=== PATIENT | female | born 1990 | race Hispanic/Latino ===

== ENCOUNTER 2019-11-24 20:22 | Emergency (ER) | payer SELFPAY ==
[2019-11-24 21:13] LABS: Urine Blood 1+ (NEG); Urine Glucose NEGATIVE (NEG); Urine Protein 1+ (NEG); Urine pH 6.5 (5.0-7.0)
[2019-11-24 21:17] LABS: Urine Bacteria >50 /HPF (<20); Urine Culture Reflex Order REFLEXED; Urine RBC 20-50 /HPF (NONE SEEN)
[2019-11-24 21:31] LABS: Absolute Lymphocytes (CBC) 1.4 K/uL (0.7-4.9); Basophils % 0.4 % (0-1.3); Lymphocytes % 16.2 % (15.3-44.8); MPV 8.6 fL (7.6-11.3); RBC Red Blood Cell Count 3.51 M/uL (3.86-4.86)
[2019-11-24 22:06] LABS: BUN Blood Urea Nitrogen 5 mg/dL (7-18); Bicarbonate 22 mmol/L (21-32); Glucose Level 92 mg/dL (74-106); HCG, Quantitative 55697 mIU/mL (1-3); Potassium 3.5 mmol/L (3.5-5.1); Sodium Level 140 mmol/L (136-145)
--- NOTE | 2019-11-24 22:28 | EDPHYS ---
Physician Documentation [facility] Name: Kierra Scott Age: 29 yrs Sex: Female : 1990 Arrival Date: 11/24/2019 Time: 20:24 Bed 18 Private MD: ED Physician Scooby Cade HPI: 11/24 20:56 This 29 yrs old Female presents to ER via Ambulatory with complaints of 15WKS kb , Abdominal Pain, Shortness Of Breath, Fever. 20:57 The patient presents with abdominal pain in the left upper quadrant. kb 20:57 Onset: The symptoms/episode began/occurred yesterday. The symptoms do not radiate. kb Associated signs and symptoms: Pertinent positives: fever, nausea. The symptoms are described as constant. Modifying factors: The symptoms are alleviated by nothing, the symptoms are aggravated by bending over, taking deep breath, lifting objects. Severity of pain: At its worst the pain was moderate in the emergency department the pain is unchanged. The patient has not experienced similar symptoms in the past. The patient has not recently seen a physician. 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 - Social history:: Smoking status: Patient/guardian denies using tobacco. - Ebola Screening: : Patient negative for fever greater than or equal to 101.5 degrees Fahrenheit, and additional compatible Ebola Virus Disease symptoms. ROS: 20:59 ENT: Negative for injury, pain, and discharge, Neck: Negative for injury, pain, and kb swelling, Cardiovascular: Negative for chest pain, palpitations, and edema, Respiratory: Negative for shortness of breath, cough, wheezing, and pleuritic chest pain, Back: Negative for injury and pain, : Negative for injury, bleeding, discharge, and swelling, MS/Extremity: Negative for injury and deformity, Skin: Negative for injury, rash, and discoloration, Neuro: Negative for headache, weakness, numbness, tingling, and seizure. 20:59 Constitutional: Positive for fever. 20:59 Abdomen/GI: Positive for abdominal pain. Exam: 20:59 Constitutional: This is a well developed, well nourished patient who is awake, alert, kb and in no acute distress. Head/Face: Normocephalic, atraumatic. Neck: Trachea midline, no thyromegaly or masses palpated, and no cervical lymphadenopathy. Supple, full range of motion without nuchal rigidity, or vertebral point tenderness. No Meningismus. Chest/axilla: Normal chest wall appearance and motion. Nontender with no deformity. No lesions are appreciated. Cardiovascular: Regular rate and rhythm with a normal S1 and S2. No gallops, murmurs, or rubs. Normal PMI, no JVD. No pulse deficits. Respiratory: Lungs have equal breath sounds bilaterally, clear to auscultation and percussion. No rales, rhonchi or wheezes noted. No increased work of breathing, no retractions or nasal flaring. Back: No spinal tenderness. No costovertebral tenderness. Full range of motion. Skin: Warm, dry with normal turgor. Normal color with no rashes, no lesions, and no evidence of cellulitis. MS/ Extremity: Pulses equal, no cyanosis. Neurovascular intact. Full, normal range of motion. Neuro: Awake and alert, GCS 15, oriented to person, place, time, and situation. Cranial nerves II-XII grossly intact. Motor strength 5/5 in all extremities. Sensory grossly intact. Cerebellar exam normal. Normal gait. 20:59 Abdomen/GI: Inspection: abdomen appears normal, Bowel sounds: normal, in all quadrants, Palpation: soft, in all quadrants, mild abdominal tenderness, in the left upper quadrant. Vital Signs: 20:49 BP 117 / 53; Pulse 97; Resp 18 S; Temp 98.5(O); Pulse Ox 98% on R/A; Weight 63.5 kg jd3 (R); Height 5 ft. 1 in. (154.94 cm) (R); Pain 8/10; 22:41 BP 124 / 70; Pulse 95; Resp 17 S; Pulse Ox 99% on R/A; jd3 20:49 Body Mass Index 26.45 (63.50 kg, 154.94 cm) jd3 MDM: 20:35 Patient medically screened. kb 20:59 Data reviewed: vital signs, nurses notes. Data interpreted: Pulse oximetry: on room air kb is 98 %. Interpretation: normal. 22:09 Counseling: I had a detailed discussion with the patient and/or guardian regarding: the kb historical points, exam findings, and any diagnostic results supporting the discharge/admit diagnosis, lab results, radiology results, the need for outpatient follow up, an OB/Gyne specialist, to return to the emergency department if symptoms worsen or persist or if there are any questions or concerns that arise at home. 11/24 20:43 Order name: Quantitative Hcg; Complete Time: 22:08 kb 11/24 20:43 Order name: Abo/rh Typing; Complete Time: 22:06 kb 11/24 20:43 Order name: Basic Metabolic Panel; Complete Time: 22:08 kb 11/24 20:43 Order name: CBC with Diff; Complete Time: 21:40 kb 11/24 20:43 Order name: Flu; Complete Time: 21:49 kb 11/24 20:43 Order name: Whitley Screen Profile; Complete Time: 21:49 kb 11/24 20:43 Order name: Urine Test (obtain specimen); Complete Time: 21:05 kb 11/24 20:43 Order name: IV Saline Lock; Complete Time: 21:22 kb 11/24 21:05 Order name: Urine Microscopic Only; Complete Time: 21:40 ar5 11/24 21:05 Order name: Urine Dipstick--Ancillary (enter results); Complete Time: 21:40 ar5 11/24 21:05 Order name: Urine --Ancillary (enter results); Complete Time: 21:40 ar5 11/24 21:18 Order name: Urine Culture EDND 11/24 21:41 Order name: US Transvaginal Ob kb 11/24 20:43 Order name: Labs collected and sent; Complete Time: 21:22 kb 11/24 20:43 Order name: NPO; Complete Time: 20:57 kb 11/24 20:43 Order name: Urine Dipstick-Ancillary (obtain specimen); Complete Time: 21:05 kb Administered Medications: 22:32 Drug: Macrobid 100 mg Route: PO; jd3 22:41 Follow up: Response: Medication administered at discharge. jd3 Disposition: 11/25 00:30 Co-signature as Attending Physician, Scooby Cade MD. rn Disposition: 11/24/19 22:27 Discharged to Home. Impression: Urinary tract infection, site not specified, 15 weeks gestation of , Placenta previa. - Condition is Stable. - Discharge Instructions: Placenta Previa, and Urinary Tract Infection, Second Trimester of , [id number]. - Prescriptions for Macrobid 100 mg Oral Capsule - take 1 capsule by ORAL route every 12 hours for 10 days; 20 capsule. - Medication Reconciliation Form, Thank You Letter, Antibiotic Education, Prescription Opioid Use form. - Follow up: Emergency Department; When: As needed; Reason: Worsening of condition. Follow up: Private Physician; When: 2 - 3 days; Reason: Recheck today's complaints, Continuance of care, Re-evaluation by your physician. Signatures: Dispatcher [employer] EDMS Clemencia Karimi, YENNI-C DIRECTOR [employer]-Scooby Chatterjee MD MD rn Davies, Jonathon, RN RN jd3 Corrections: (The following items were deleted from the chart) 11/24 22:42 22:27 11/24/2019 22:27 Discharged to Home. Impression: Urinary tract infection, site jd3 not specified; 15 weeks gestation of ; Placenta previa. Condition is Stable. Discharge Instructions: and Urinary Tract Infection. Prescriptions for Macrobid 100 mg Oral Capsule - take 1 capsule by ORAL route every 12 hours for 10 days; 20 capsule. and Forms are Medication Reconciliation Form, Thank You Letter, Antibiotic Education, Prescription Opioid Use. Follow up: Emergency Department; When: As needed; Reason: Worsening of condition. Follow up: Private Physician; When: 2 - 3 days; Reason: Recheck today's complaints, Continuance of care, Re-evaluation by your physician. kb
--- NOTE | 2019-11-24 22:28 | ER ---
Nurse's Notes [facility] Name: Kierra Scott Age: 29 yrs Sex: Female : 1990 Arrival Date: 11/24/2019 Time: 20:24 Bed 18 Private MD: Diagnosis: Urinary tract infection, site not specified;15 weeks gestation of ;Placenta previa Presentation: 11/24 20:45 Presenting complaint: Patient states: "I am having left sided stomach pain. it hurts jd3 worse when I bend over to pick stuff up or take a deep breath. I have been feeling nauseous and I had a 102 fever yesterday. I also recently think I had a UTI with a burning sensation, but I took some medications and it went away.". Transition of care: patient was not received from another setting of care. Onset of symptoms was November 24, 2019. Risk Assessment: Do you want to hurt yourself or someone else? Patient reports no desire to harm self or others. Initial Sepsis Screen: Does the patient meet any 2 criteria? No. Patient's initial sepsis screen is negative. Does the patient have a suspected source of infection? No. Patient's initial sepsis screen is negative. Care prior to arrival: None. 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 - Social history:: Smoking status: Patient/guardian denies using tobacco. - Ebola Screening: : Patient negative for fever greater than or equal to 101.5 degrees Fahrenheit, and additional compatible Ebola Virus Disease symptoms. Screenin:51 Abuse screen: Denies threats or abuse. Nutritional screening: No deficits noted. jd3 Tuberculosis screening: No symptoms or risk factors identified. Fall Risk Ambulatory Aid- None/Bed Rest/Nurse Assist (0 pts). Gait- Normal/Bed Rest/Wheelchair (0 pts) Mental Status- Oriented to own ability (0 pts). Total John Fall Scale indicates No Risk (0-24 pts). Assessment: 20:50 General: Appears in no apparent distress. uncomfortable, Behavior is calm, cooperative, jd3 appropriate for age. Pain: Complains of pain in left upper quadrant Quality of pain is described as aching. Neuro: Level of Consciousness is awake, alert, obeys commands, Oriented to person, place, time, situation. Cardiovascular: Denies chest pain, Capillary refill < 3 seconds Patient's skin is warm and dry. Respiratory: Airway is patent Respiratory effort is even, unlabored, Respiratory pattern is regular, symmetrical, Denies cough, shortness of breath. GI: Abdomen is round non-distended, Bowel sounds present X 4 quads. Abd is soft X 4 quads Abdomen is tender to palpation in left upper quadrant Reports nausea, Patient currently denies vomiting. : No signs and/or symptoms were reported regarding the genitourinary system. EENT: No signs and/or symptoms were reported regarding the EENT system. Derm: Skin is intact, Skin is dry, Skin is normal, Skin temperature is warm. Musculoskeletal: Circulation, motion, and sensation intact. Range of motion: intact in all extremities. 21:26 Reassessment: Patient appears in no apparent distress at this time. No changes from jd3 previously documented assessment. Patient and/or family updated on plan of care and expected duration. Pain level reassessed. Patient is alert, oriented x 3, equal unlabored respirations, skin warm/dry/pink. 22:40 Reassessment: Patient appears in no apparent distress at this time. Patient and/or d3 family updated on plan of care and expected duration. Pain level reassessed. Patient is alert, oriented x 3, equal unlabored respirations, skin warm/dry/pink. reported understanding of discharge instructions, even and steady gait upon discharge. Patient states feeling better. Vital Signs: 20:49 BP 117 / 53; Pulse 97; Resp 18 S; Temp 98.5(O); Pulse Ox 98% on R/A; Weight 63.5 kg jd3 (R); Height 5 ft. 1 in. (154.94 cm) (R); Pain 8/10; 22:41 BP 124 / 70; Pulse 95; Resp 17 S; Pulse Ox 99% on R/A; jd3 20:49 Body Mass Index 26.45 (63.50 kg, 154.94 cm) jd3 ED Course: 20:24 Patient arrived in ED. cf2 20:35 Clemencia Karimi FNP-C [facility]. kb 20:35 Scooby Cade MD is Attending Physician. kb 20:40 Khris Shell, RN is Primary Nurse. jd3 20:48 Triage completed. jd3 20:50 Arm band placed on. jd3 20:52 Patient has correct armband on for positive identification. Bed in low position. Call j light in reach. Side rails up X 1. 21:26 Inserted saline lock: 20 gauge in right antecubital area, using aseptic technique. jd3 Blood collected. placed by [facility]. 22:32 US Transvaginal Ob In Process Unspecified. EDMS 22:39 No provider procedures requiring assistance completed. IV discontinued, intact, jd3 bleeding controlled, No redness/swelling at site. Pressure dressing applied. Administered Medications: 22:32 Drug: Macrobid 100 mg Route: PO; jd3 22:41 Follow up: Response: Medication administered at discharge. jd3 Outcome: 22:27 Discharge ordered by . kb 22:39 Discharged to home ambulatory, with family. jd3 22:39 Condition: stable 22:39 Discharge instructions given to patient, Instructed on discharge instructions, follow up and referral plans. medication usage, Demonstrated understanding of instructions, follow-up care, medications, Prescriptions given X 1. 22:42 Patient left the ED. jd3 Addendum: 11/28/2019 07:38 Addendum: Culture Results: Positive urine culture. No further action required. Bacteria m s sensitive to prescribed antibiotic. Signatures: Dispatcher [employer] EDMS Clemencia Karimi FNP-C FNP-Alina March ms Khris Shell, RN RN jd3 [place] So cf2
[2019-11-24] MEDS ORDERED: NITROFURAN MACRO 100 MG CAP PO ONE (22:30)
[2019-11-24 22:50] VITALS: TEMP 98.5
[2019-11-24 22:51] VITALS: BP 124/70; O2SAT 99
--- NOTE | 2019-11-25 07:15 | RAD REPORT ---
EXAM DESCRIPTION: US - Transvaginal OB - 11/24/2019 10:32 pm CLINICAL HISTORY: , abdominal pain COMPARISON: None. FINDINGS: A single variably presenting gestation is identified. No gross cardiac abnormality identif ied. Heart rate normal. The intracranial contents and spine are grossly normal for a. stomach, kidneys and bladder also appear to be normal. No umbilical cord for anterior abdominal wall abnormal ity seen. Overall anatomic assessment is grossly normal but anatomic assessment is limited at this ge stational age. measurements are as follows: BPD:3.29 Centimeters 16 weeks 1 day HC:12.82 Centimeters 16 weeks 3 days AC:9.78 Centimeters 15 weeks 5 days HL:1.66 Centimeters 14 weeks 5 days FL:1.68 Centimeters 14 weeks 6 days The estimated gestational age (EGA) is 15 weeks 4 days with an SALVADOR of 05/13/2020. ratios are n ormal or within acceptable limits. The placenta is grade grade 0 and primarily anterior in location. A complete placenta previa is evident. No abruption, marginal hematoma or acute placental finding. In ternal os appears be closed. The amniotic fluid volume is normal. No maternal adnexa abnormality. IMPRESSION: 1. Single, variably presenting gestation with an EGA of 15 weeks 4 days and an SALVADOR of th e 05/13/2020. 2. Anatomic assessment is limited at this age but grossly normal. ratios are normal or within a cceptable limits. 3. Grade 0, anterior placenta with placenta previa. No acute placental finding seen. 4. Amniotic fluid volume is normal.
== END 2019-11-24 22:42 | disposition home or self-care (01) ==
LOC: ER 20:22
DX: O23.42 Unspecified infection of urinary tract in pregnancy, second trimester (principal); O44.02 Complete placenta previa NOS or without hemorrhage, second trimester; Z3A.15 15 weeks gestation of pregnancy
CPT/HCPCS: 36415; 76817; 80048; 81003; 81015; 81025; 84702; 85025; 86308; 86900; 86901; 87077; 87086; 87088; 87186; 87804; 99284